=== PATIENT | female | born 1980 | race Caucasian/White ===

== ENCOUNTER 2023-01-24 21:38 | Emergency (ER) | payer OTHER, SELFPAY ==
--- NOTE | 2023-01-24 21:39 | ECG_ITS ---
Measurements Intervals [place] Rate: 91 P: 61 IL: 159 QRS: 18 QRSD: 78 T: 54 QT: 320 QTc: 395 Interpretive Statements SINUS RHYTHM ATRIAL COUPLET AND TRANSIENT ATRIAL TACHYCARDI POSSIBLE LEFT ATRIAL ENLARGEMENT NONSPECIFIC ST & T-WAVE ABNORMALITY- ANTEROLATERAL LEADS ABNORMAL ECG NO PREVIOUS ECG AVAILABLE FOR COMPARISON Electronically Signed On 01-25-2023 6:43:31 CDT by Mukesh Ochoa D.O.
[2023-01-24 21:41] VITALS: BP 120/96; PULSE 140; RESP 16; TEMP 36.4; O2SAT 100
[2023-01-24 22:00] VITALS: PULSE 83; RESP 20; O2SAT 98
[2023-01-24 22:18] VITALS: PULSE 92; RESP 22; O2SAT 100
[2023-01-24 22:46] LABS: Basophils Absolute Auto 0.1 K/mm3 (0.0-0.1); Basophils Percent Auto 0.6 % (0.2-1.2); Eosinophils Absolute Auto 0.3 K/mm3 (0-0.3); Eosinophils Percent Auto 3.7 % (0-4.4); Hematocrit 35.3 % (37.0-47.0); Hemoglobin 10.9 g/dL (12.0-15.0); Immature Granulocyte Absolute 0.02 K/mm3 (0.00-0.031); Immature Granulocyte Percent A 0.2 % (0-0.5); Lymphocytes Absolute Auto 2.48 K/mm3 (0.9-3.2); Lymphocytes Percent Auto 28.9 % (18.3-44.2); Mean Corpuscular HGB Conc 30.9 g/dl (32-36); Mean Corpuscular Hemoglobin 24.4 pg (26-34); Mean Corpuscular Volume 79.1 fl (80-100); Mean Platelet Volume 10.1 fl (7.4-10.4); Monocytes Absolute Auto 0.6 K/mm3 (0.1-0.6); Monocytes Percent Auto 6.9 % (2.6-8.5); Neutrophils Absolute Auto 5.1 K/mm3 (1.3-6.7); Neutrophils Percent Auto 59.7 % (45.5-73.1); Platelet Count Result 281 k/mm3 (150-375); Red Blood Count 4.46 M/mm3 (4.2-5.4); Red Cell Distribution Width 14.3 % (11.5-14.5); White Blood Count 8.6 K/mm3 (4.5-10.0)
[2023-01-24 22:55] LABS: Alanine Aminotransferase 20 U/L (6-35); Albumin Level 3.9 g/dL (3.5-5.1); Alkaline Phosphatase 85 U/L (38-126); Anion Gap 8 mmol/L (8-16); Aspartate Amino Transferase 28 U/L (14-36); Bilirubin,Total 0.2 mg/dL (0.2-1.3); Blood Urea Nitrogen 13 mg/dL (7-17); Calcium 8.7 mg/dL (8.4-10.2); Carbon Dioxide 21 mmol/L (22-30); Chloride 108 mmol/L (98-107); Estimated CRCL calculation 83 ml/min; Estimated Glomerular Filt Rate > 60; Glucose 126 mg/dL (65-110); Magnesium 1.8 mg/dL (1.6-2.3); Phosphorus 3.6 mg/dL (2.5-4.5); Sodium 137 mmol/L (137-145)
[2023-01-24 22:59] VITALS: PULSE 86; RESP 16; O2SAT 99
--- NOTE | 2023-01-24 23:06 | ED.ARRPALP ---
HPI - Arrhythmia/Palpitations General Chief Complaint: Arrhythmia/Palpitations Stated Complaint: elevated HR Time Seen by Provider: 01/24/23 21:54 History of Present Illness HPI narrative: Patient presents to the emergency department with concerns for palpitations. She has had episodes of SVT intermittently since she was in her 20s. She had an ablation done a few years ago and has been doing well. However throughout the day today she has had waxing and waning sensation of palpations again. Denies chest pain. Denies all other review of systems. When she first arrived to the emergency department she was slightly tachycardic and her EKG showed frequent supraventricular premature complexes. Although she does not stay in SVT. Her symptoms have now resolved and she is in normal sinus rhythm. Patient had lived in [place] where she had most of her care. 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 She has been off her medications since she was ablated Related Data Allergies Allergy/AdvReac Type Severity Reaction Status Date / Time No Known Allergies Allergy Verified 01/24/23 22:22 Review of Systems Review of Systems: CONSTITUTIONAL: Denies fever, chills, or sweats. EYES: Denies visual changes, redness, or discharge. ENT: Denies rhinorrhea, congestion, sore throat, or otalgia. CARDIOVASCULAR: Denies chest pain, palpitations, or edema. RESPIRATORY: Denies cough or dyspnea. GASTROINTESTINAL: Denies abdominal pain, nausea, vomiting, or diarrhea. GENITOURINARY: Denies dysuria or hematuria. SKIN: Denies rash or itching. MUSCULOSKELETAL: Denies back pain, joint pain, or myalgia. NEUROLOGIC: Denies headache, numbness, or weakness. PSYCHIATRIC: Denies anxiety or depression. Exam Narrative: GENERAL: Well-appearing, well-nourished, and in no acute distress. HEAD: Normocephalic, atraumatic. EYES: PERRLA and EOMI. ENT: Nares clear, no rhinorrhea or epistaxis. Mucous membranes moist. NECK: Supple. CHEST: Clear to auscultation. No respiratory distress. HEART: Regular rate and rhythm. ABDOMEN: Soft, nontender, nondistended. EXTREMITIES: Normal range of motion. No edema. SKIN: Warm, dry, no rash. NEURO: No focal deficits. Alert and oriented x3. PSYCH: Normal mood and affect. Course Course Emergency Course: Differential diagnosis includes but not limited to electrolyte abnormality, CAD, recurrence of SVT Telemetry ordered due to palpitations to evaluate for dysrhythmias. Evaluated by myself. Rhythm ns Rate95 Vital Signs Vital signs: Vital Signs Temperature 36.4 C L 01/24/23 21:41 Pulse Rate 140 H 01/24/23 21:41 Respiratory Rate 16 01/24/23 21:41 Blood Pressure 120/96 H 01/24/23 21:41 Pulse Oximetry 100 01/24/23 21:41 Oxygen Delivery Room Air 01/24/23 21:41 Temperature 36.4 C L 01/24/23 21:41 Pulse Rate 86 01/24/23 22:59 Respiratory Rate 16 01/24/23 22:59 Blood Pressure 120/96 H 01/24/23 21:41 Pulse Oximetry 99 01/24/23 22:59 Oxygen Delivery Room Air 01/24/23 21:41 MDM - Arrhythmia/Palpitations MDM Narrative Medical decision making narrative: Pt has not had any other episodes of palpitations since arrival - two very slight brief sensations. she has been in NSR Consulted cardiology, Dr Ochoa. He recommends starting her on metoprolol daily and having her follow-up in the office. Lab Data 01/24/23 22:35 01/24/23 22:35 Labs: Lab Results 01/24/23 Range/Units 22:35 WBC 8.6 (4.5-10.0) K/mm3 RBC 4.46 (4.2-5.4) M/mm3 Hgb 10.9 L (12.0-15.0) g/dL Hct 35.3 L (37.0-47.0) % MCV 79.1 L (80-100) fl MCH 24.4 L (26-34) pg MCHC 30.9 L (32-36) g/dl RDW 14.3 (11.5-14.5) % Plt Count 281 (150-375) k/mm3 MPV 10.1 (7.4-10.4) fl Immature Gran % (Auto) 0.2 (0-0.5) % Neut % (Auto) 59.7 (45.5-73.1) % Lymph % (Auto) 28.9 (18.3-44.2) % Brown % (Auto) 6.9 (2.6-8.5) % Eos % (Auto) 3.7 (0-4.4) % Baso %
--- NOTE | 2023-01-24 23:16 | PC.NURSE ---
pt report and care given to KATIA Browne. all questions answered.
[2023-01-24 23:17] LABS: Troponin I < 0.012 ng/mL (0.000-0.034)
[2023-01-25 00:50] VITALS: BP 118/86; PULSE 81; RESP 15; O2SAT 99
== END 2023-01-25 00:52 | disposition home or self-care (01) ==
PROVIDERS: Emergency Provider Emergency Medicine
DX: I47.1 Supraventricular tachycardia (principal); R00.2 Palpitations
CPT/HCPCS: 36415; 80053; 83735; 84100; 84484; 85025; 93005; 99284